=== PATIENT | male | born 2000 | race Caucasian/White ===

== ENCOUNTER 2018-01-30 12:19 | Emergency (ER) | payer SELFPAY ==
[~2018-01-30] VITALS: Ht 167.6 cm; Wt 75.7 kg
[2018-01-30] MEDS ORDERED: CLARITHROMYCIN500 MG PO (13:10)
[2018-01-30] MEDS ORDERED: MUCINEX DM ER1 EACH PO (13:10)
[2018-01-30] MEDS ORDERED: VENTOLIN HFA18 GM INH (13:10)
[2018-01-30] MEDS ORDERED: PREDNISONE20 MG PO (13:10)
[2018-01-30 13:18] VITALS: BP 140/84
== END 2018-01-30 13:25 | disposition home or self-care (01) ==
LOC: ER 12:19
DX: R50.9 Fever, unspecified (principal); R05 Cough; J20.9 Acute bronchitis, unspecified
CPT/HCPCS: 99282

== ENCOUNTER 2018-05-20 09:28 | Emergency (ER) | payer SELFPAY ==
[~2018-05-20] VITALS: Ht 157.5 cm; Wt 75.7 kg
[~2018-05-20 09:28] MED LIST: CLARITHROMYCIN500 MG PO; MUCINEX DM ER1 EACH PO; PREDNISONE20 MG PO; VENTOLIN HFA18 GM INH
[2018-05-20] MEDS ORDERED: HYDROCODONE/APAP 10MG-325MG TAB PO ONE (10:00)
--- NOTE | 2018-05-20 10:33 | Diagnostic Imaging Report ---
WRIST COMPLETE LEFT - 3 views HISTORY: Pain COMPARISON: None available. FINDINGS: See impression. IMPRESSION: Nondisplaced medial distal radial fracture with questionable intra-articular extension of the fracture line and associated mild soft tissue swelling. Signed by: Dr. Andrea Bhatia MD on 05/20/2018 10:30 AM
== END 2018-05-20 10:36 | disposition home or self-care (01) ==
LOC: ER 09:28
DX: S52.325A Nondisplaced transverse fracture of shaft of left radius, initial encounter for closed fracture (principal); W18.39XA Other fall on same level, initial encounter; Y92.008 Other place in unspecified non-institutional (private) residence as the place of occurrence of the external cause; J45.909 Unspecified asthma, uncomplicated
CPT/HCPCS: 99282